=== PATIENT | male | born 1990 ===

== ENCOUNTER 2023-05-05 11:59 | Emergency (ER) | payer SELFPAY ==
[2023-05-05 12:33] VITALS: BP 183/107; PULSE 100; RESP 15; TEMP 37.3; O2SAT 99; BMI 29.8
--- NOTE | 2023-05-05 12:53 | DI.US.S_ITS ---
PROCEDURE: US PERIPH VENOUS LOW EXTREM LT INDICATIONS: SWELLING/PAIN X 2 WEEKS. H/O QUAD TEAR 11/2022. REHAB FINISHED 02/2023. HISTORY OF COMPARTMENT SYNDROME 2 TIMES PER PATIENT. TECHNIQUE: Real-time imaging, as well as color and pulse Doppler interrogation, were performed of the lower extremity deep veins from the inguinal ligament to the popliteal fossa, with documentation of the visualized calf veins. COMPARISON: None. FINDINGS: The common femoral, femoral, popliteal, and the visualized calf veins are normally compressible, and free of intraluminal thrombus. Color and pulse Doppler demonstrate normal phasic intraluminal flow. There is normal augmentation response to distal compression maneuver. Heterogeneous intramuscular fluid collection is seen at the lateral aspect of the thigh measuring 20.1 x 7.1 x 4.0 cm. This appears to be located in the region of the vastus lateralis muscle, although bony landmarks are not optimally visualized. Small amount of anechoic fluid adjacent to the in the may represent joint effusion. IMPRESSION: 1. No sonographic evidence of deep venous thrombosis in the left lower extremity. 2. Large heterogeneous intramuscular collection along the lateral aspect of the thigh is most likely an intramuscular hematoma. Noncontrast MRI of the femur/thigh could be performed for further characterization if clinically indicated. Approved by: Car Gamboa M.D. on 05/05/2023 at 13:59
[2023-05-05 13:21] LABS: Add Manual Diff / Slide Review NO; Basophils Absolute Auto 100 /uL (0-100); Basophils Percent Auto 0.8 % (0-2); Eosinophils Absolute Auto 100 /uL (0-450); Eosinophils Percent Auto 0.6 % (2-4); Hematocrit 33.6 % (41-53); Hemoglobin 11.6 g/dL (13.5-17.5); Lymphocytes Absolute Auto 2300 /uL (1100-4500); Lymphocytes Percent Auto 18.6 % (25-40); Mean Corpuscular HGB Conc 34.5 % (30-36); Mean Corpuscular Hemoglobin 27.7 PG (26-34); Mean Corpuscular Volume 80.3 fL (80-100); Monocytes Absolute Auto 1100 /uL (0-900); Monocytes Percent Auto 8.8 % (3-14); Neutrophils Absolute Auto 8800 /uL (1500-7000); Neutrophils Percent Auto 71.2 % (50-75); Platelet Count 502 X10^3/uL (150-400); Red Blood Cell Count 4.19 X10^6/uL (4.5-5.9); Red Cell Distribution Width 15.5 % (11.6-14.8); White Blood Cell Count 12.3 X10^3/uL (4.5-11.0)
[2023-05-05 13:30] LABS: Alanine Aminotransferase 56 IU/L (<50); Albumin 4.4 g/dL (3.5-5.0); Albumin Globulin Ratio 1.3 (1.0-2.8); Alkaline Phosphatase 36 U/L (38-126); Aspartate Aminotransferase 53 IU/L (17-59); BUN Creatinine Ratio 21.9 (6-22); Bilirubin Total 1.3 mg/dL (0.2-1.3); Blood Urea Nitrogen 35 mg/dL (9-20); Calcium 9.6 mg/dL (8.4-10.2); Carbon Dioxide 34 mmol/L (22-32); Chloride 90 mmol/L (98-107); Creatine Kinase 513 U/L (55-170); Estimated Glomerular Filt Rate 57 mL/min (>60); Globulin 3.4 g/dL (1.7-4.1); Glucose 109 mg/dL (70-100); HEMOLYSIS < 15 (0-50); Potassium 4.1 mmol/L (3.4-5.1); Sodium 134 mmol/L (137-145); Total Protein 7.8 g/dL (6.3-8.2)
--- NOTE | 2023-05-05 14:26 | DI.CT.S_ITS ---
PROCEDURE: CT LE LT W CON INDICATIONS: ?Hematoma TECHNIQUE: After the administration of intravenous contrast, 3 mm axial sections acquired of the left thigh, with coronal and sagittal reformats. COMPARISON: [facility], , PERIP VENOUS LOW EXTREM LT, 05/05/2023, 13:14. FINDINGS: Image quality: Excellent. Bones: No acute osseous fracture or dislocation. No significant degenerative changes in the left hip. No suspicious osseous lesion. Soft tissues: Ill-defined intramuscular fluid collection is seen within the anterior compartment of the thigh with areas of fluid attenuation and hyperattenuating areas. This lesion is better demonstrated on the ultrasound performed earlier the same day. Collection appears to measure at least 20.5 cm in length although the margins are poorly defined. The collection likely involves the vastus lateralis and/or vastus intermedius muscle. The rectus femoris and vastus medialis muscles do not appear to be involved. No active contrast extravasation is seen. Mild overlying subcutaneous edema is present. There is mild edema at the proximal lateral aspect of the thigh near the greater trochanter. Small right knee effusion is partially imaged. The common, superficial, and deep femoral arteries are patent. Pelvic soft tissues demonstrate no acute abnormality. The medial and posterior thigh musculature is normal in bulk. IMPRESSION: Ill-defined heterogeneous fluid collection within the anterior compartment musculature is most likely an intramuscular hematoma, as seen on ultrasound from earlier the same day. No active contrast extravasation is seen. Approved by: Car Gamboa M.D. on 05/05/2023 at 16:16
[2023-05-05 14:40] LABS: Magnesium 2.3 mg/dL (1.6-2.3); Phosphorous 4.9 mg/dL (2.5-4.5)
[2023-05-05] MEDS: SODIUM CHLORIDE 0.9% 1,000 ML 1000 ML IV ×2 (14:59→15:36)
[2023-05-05 16:26] VITALS: BP 224/112; PULSE 102; RESP 16; O2SAT 100
--- NOTE | 2023-05-05 16:44 | PC.NURSE ---
discussed at length with patient regarding his kidney function and the need for him to establish care with a PCP once returning to [place]. Pt agreeable. Shahbaz Wilson PAC made aware of BP elevation. Pt states he has white coat syndrome and takes his BP at home which is always within normal limits. No new orders. Pt discharged to home and ambulated out of department with steady gait.
--- NOTE | 2023-05-05 18:49 | ED.EXTPRO ---
HPI - Extremity Problem <Shahbaz Wilson PA-C - Last Filed: 05/05/23 19:03> General Chief complaint: Extremity Problem,Nontraumatic Stated complaint: lt leg pain Time Seen by Provider: 05/05/23 14:26 Source: patient Mode of arrival: Family Vehicle History of Present Illness HPI Narrative: 33-year-old male with no reported past medical history presents to the ED with left quad accepts swelling and pain for 2 weeks. Patient states that he is from [place], tore his left quadriceps in November 2022 as a result of a leg press machine coming down on him. Patient exercises regularly. Patient states that he was fell from the quadrants tear, noted swelling and pain after a bout of wrestling 2 weeks ago. Since then, patient has had intermittent swelling pain and discomfort when walking. Patient is able to bend his knees and there is full range of motion. Patient denies numbness, tingling, weakness. Denies drug use. Related Data Allergies Allergy/AdvReac Type Severity Reaction Status Date / Time No Known Drug Allergies Allergy Verified 05/05/23 12:43 Review of Systems <Shahbaz Wilson PA-C - Last Filed: 05/05/23 19:03> Review of Systems ROS Unobtainable: All systems reviewed & are unremarkable except as noted in HPI and below Constitutional Constitutional: Denies chills, Denies fatigue, Denies fever(s), Denies frequent falls, Denies lethargy and Denies weakness Eyes Eyes: Denies change in vision, Denies eye discharge, Denies irritation and Denies loss of vision ENT Ears, Nose, Mouth, and Throat: Denies change in voice, Denies dizziness, Denies neck pain, Denies sore throat and Denies throat swelling Cardiovascular Cardiovascular: Denies chest pain, Denies irregular heart rhythm, Denies lightheadedness, Denies palpitations, Denies dyspnea, Denies dyspnea on exertion and Denies orthopnea Respiratory Respiratory: Denies cough, Denies dyspnea, Denies dyspnea on exertion and Denies wheezing Gastrointestinal Gastrointestinal: Denies abdominal pain, Denies change in bowel habits, Denies diarrhea, Denies nausea and Denies vomiting Genitourinary Genitourinary: Denies hematuria, Denies flank pain, Denies urinary incontinence and Denies urinary urgency Musculoskeletal Musculoskeletal: Denies back pain, Denies muscle weakness, Denies neck pain, Denies numbness and Denies tingling Comments: Left quadriceps pain Integumentary/Breasts Skin/Breast: Denies pruritus, Denies erythema, Denies rash and Denies wounds Neurologic Neurologic: Denies behavioral changes, Denies confusion, Denies dizziness, Denies frequent falls, Denies loss of vision, Denies numbness, Denies tingling and Denies weakness Psychiatric Psychiatric: Denies anxiety, Denies behavioral changes, Denies confusion, Denies depression, Denies homicidal ideation and Denies suicidal ideation Endocrine Endocrine: Denies fatigue, Denies flushing and Denies palpitations Hematologic/Lymphatic Hematologic/Lymphatic: Denies easy bruising Allergic/Immunologic Allergic/Immunologic: Denies urticaria, Denies throat swelling and Denies wheezing Patient History <Shahbaz Wilson PA-C - Last Filed: 05/05/23 19:03> Social History Smoking Status: Never smoker Smoking Status: Never smoker alcohol intake frequency: 0-2 drinks per day Substance Use Type: marijuana Exam <Shahbaz Wilson PA-C - Last Filed: 05/05/23 19:03> Narrative Exam Narrative: Const General:?cooperative, healthy appearing and comfortable [facility] Head:?normal to inspection Ears:?hearing grossly normal bilaterally Nose:?external nose normal Face and sinus:?normal facial exam and sinuses nontender Mouth:?oral mucosae normal Throat:?posterior oropharynx normal Eyes General:?appearance normal, both eyes and all related structures Neck Neck:?normal visual inspection and no lymphadenopathy noted Resp Effort & Inspection:?normal respiratory effort Auscultation:?clear to auscultation bilaterally Cardio Rate:?regular rate Rhythm:?regular rhythm Musculoskeletal Left quadriceps appears swollen, tender to palpation. Compartments are soft. No bruising visualized on exam. There is full range of motion. Strength and sensation is intact. Patient is neurovascularly intact. Patient is able to bear weight and walk. Neuro General:?patient alert, patient awake and patient oriented x3 Initial Vital Signs Initial Vital Signs: Vital Signs Temperature 99.1 F 05/05/23 12:33 Pulse Rate 100 H 05/05/23 12:33 Respiratory Rate 15 05/05/23 12:33 Blood Pressure 183/107 H 05/05/23 12:33 Pulse Oximetry 99 05/05/23 12:33 Oxygen Delivery Method Room Air 05/05/23 12:33 <Aurelia Begum DO - Last Filed: 05/07/23 07:42> Initial Vital Signs Initial Vital Signs: Vital Signs Temperature 99.1 F 05/05/23 12:33 Pulse Rate 100 H 05/05/23 12:33 Respiratory Rate 15 05/05/23 12:33 Blood Pressure 183/107 H 05/05/23 12:33 Pulse Oximetry 99 05/05/23 12:33 Oxygen Delivery Method Room Air 05/05/23 12:33 Course <Shahbaz Wilson PA-C - Last Filed: 05/05/23 19:03> Orders Ordered: Discontinued Medications Sodium Chloride (Normal Saline 0.9%) 1,000 mls @ 1,000 mls/hr IV BOLUS ONE Stop: 05/05/23 15:28 Last Infusion: 05/05/23 15:36 Dose: 0 mls/hr Documented By: Admin: 05/05/23 14:59 Dose: 1,000 mls/hr Documented By: CTS Sodium Chloride (Normal Saline 0.9%) 1,000 mls @ 1,000 mls/hr IV BOLUS ONE Stop: 05/05/23 16:23 Last Infusion: 05/05/23 16:06 Dose: 0 mls/hr Documented By: Admin: 05/05/23 15:36 Dose: 1,000 mls/hr Documented By: CTS Vital Signs Vital signs: Vital Signs - 8 hr 05/05/23 12:33 05/05/23 16:26 Temperature 99.1 F Pulse Rate 100 H 102 H Respiratory Rate 15 16 Blood Pressure 183/107 H 224/112 H Pulse Oximetry 99 100 Oxygen Delivery Method Room Air Room Air <Aurelia Begum DO - Last Filed: 05/07/23 07:42> Orders Ordered: Discontinued Medications Sodium Chloride (Normal Saline 0.9%) 1,000 mls @ 1,000 mls/hr IV BOLUS ONE Stop: 05/05/23 15:28 Last Infusion: 05/05/23 15:36 Dose: 0 mls/hr Documented By: Admin: 05/05/23 14:59 Dose: 1,000 mls/hr Documented By: CTS Sodium Chloride (Normal Saline 0.9%) 1,000 mls @ 1,000 mls/hr IV BOLUS ONE Stop: 05/05/23 16:23 Last Infusion: 05/05/23 16:06 Dose: 0 mls/hr Documented By: Admin: 05/05/23 15:36 Dose: 1,000 mls/hr Documented By: ALEJANDRO Vital Signs Vital signs: Vital Signs - 8 hr 05/05/23 12:33 05/05/23 16:26 Temperature 99.1 F Pulse Rate 100 H 102 H Respiratory Rate 15 16 Blood Pressure 183/107 H 224/112 H Pulse Oximetry 99 100 Oxygen Delivery Method Room Air Room Air MDM - Extremity (Nontraumatic) <Shahbaz Wilson PA-C - Last Filed: 05/05/23 19:03> Lab Data 05/05/23 13:07 05/05/23 13:07 Labs: Lab Results 05/05/23 05/05/23 05/05/23 Range/Units 13:07 13:07 13:07 WBC 12.3 H (4.5-11.0) X10^3/uL RBC 4.19 L (4.5-5.9) X10^6/uL Hgb 11.6 L (13.5-17.5) g/dL Hct 33.6 L (41-53) % MCV 80.3 (80-100) fL MCH 27.7 (26-34) PG MCHC 34.5 (30-36) % RDW 15.5 H (11.6-14.8) % Plt Count 502 H (150-400) X10^3/uL Neut % (Auto) 71.2 (50-75) % Lymph % (Auto) 18.6 L (25-40) % Craven % (Auto) 8.8 (3-14) % Eos % (Auto) 0.6 L (2-4) % Baso % (Auto) 0.8 (0-2) % Neut # (Auto) 8800 H (2307-5399) /uL Lymph # (Auto) 2300 (4783-9358) /uL Craven # (Auto) 1100 H (0-900) /uL Eos # (Auto) 100 (0-450) /uL Baso # (Auto) 100 (0-100) /uL Sodium 134 L (137-145) mmol/L Potassium 4.1 (3.4-5.1) mmol/L Chloride 90 L (98-107) mmol/L Carbon Dioxide 34 H (22-32) mmol/L BUN 35 H (9-20) mg/dL Creatinine 1.60 H (0.66-1.25) mg/dL Estimated GFR 57 L (>60) mL/min BUN/Creatinine Ratio 21.9 (6-22) Glucose 109 H (70-100) mg/dL Calcium 9.6 (8.4-10.2) mg/dL Phosphorus (2.5-4.5) mg/dL Magnesium (1.6-2.3) mg/dL Total Bilirubin 1.3 (0.2-1.3) mg/dL AST 53 (17-59) IU/L ALT 56 H (<50) IU/L Alkaline Phosphatase 36 L (38-126) U/L Total Creatine Kinase 513 H (55-170) U/L Total Protein 7.8 (6.3-8.2) g/dL Albumin 4.4 (3.5-5.0) g/dL Globulin 3.4 (1.7-4.1) g/dL Albumin/Globulin Ratio 1.3 (1.0-2.8) // Range/Units 13:07 WBC (4.5-11.0) X10^3/uL RBC (4.5-5.9) X10^6/uL Hgb (13.5-17.5) g/dL Hct (41-53) % MCV (80-100) fL MCH (26-34) PG MCHC (30-36) % RDW (11.6-14.8) % Plt Count (150-400) X10^3/uL Neut % (Auto) (50-75) % Lymph % (Auto) (25-40) % Craven % (Auto) (3-14) % Eos % (Auto) (2-4) % Baso % (Auto) (0-2) % Neut # (Auto) (9195-3161) /uL Lymph # (Auto) (0066-8744) /uL Craven # (Auto) (0-900) /uL Eos # (Auto) (0-450) /uL Baso # (Auto) (0-100) /uL Sodium (137-145) mmol/L Potassium (3.4-5.1) mmol/L Chloride (98-107) mmol/L Carbon Dioxide (22-32) mmol/L BUN (9-20) mg/dL Creatinine (0.66-1.25) mg/dL Estimated GFR (>60) mL/min BUN/Creatinine Ratio (6-22) Glucose (70-100) mg/dL Calcium (8.4-10.2) mg/dL Phosphorus 4.9 H (2.5-4.5) mg/dL Magnesium 2.3 (1.6-2.3) mg/dL Total Bilirubin (0.2-1.3) mg/dL AST (17-59) IU/L ALT (<50) IU/L Alkaline Phosphatase (38-126) U/L Total Creatine Kinase (55-170) U/L Total Protein (6.3-8.2) g/dL Albumin (3.5-5.0) g/dL Globulin (1.7-4.1) g/dL Albumin/Globulin Ratio (1.0-2.8) MDM Narrative Medical decision making narrative: 33-year-old male with no reported past medical history presents to the ED with left quad accepts swelling and pain for 2 weeks. Concern for DVT versus hematoma versus musculoskeletal sprain/strain versus other. Obtained ultrasound, CK, labs. Ultrasound shows no evidence of DVT. There is a large heterogenous intramuscular collection along the lateral aspect of the thigh which is most likely an intramuscular hematoma. CK is elevated to 513, mild elevation of liver enzymes. There is an FAISAL with creatinine 1.6, GFR 57. Phosphorus mildly elevated to 4.9. Patient's lab abnormalities most consistent with muscle injury, rhabdomyolysis. Patient is also tachycardic, which he attributes to white coat syndrome and being in the ED. a CT was performed which shows a ill-defined heterogenous fluid collection within the anterior compartment musculature which is most likely an intramuscular hematoma, consistent with the ultrasound findings. Patient given 2 L of IV fluids. Discussed findings with patient. Counseled importance of resting muscles to promote healing. Recommend follow-up with PCP and physical therapy to safely rehabilitate the injured muscle. Discussed lab abnormalities, rhabdomyolysis, recommend reducing the intensity of exercises. Patient agrees to follow-up with his PCP. ED return precautions were discussed with patient. Patient verbalized understanding. Medical records reviewed: Yes <Aurelia Kel DO - Last Filed: 05/07/23 07:42> Lab Data Labs: Lab Results 05/05/23 05/05/23 05/05/23 Range/Units 13:07 13:07 13:07 WBC 12.3 H (4.5-11.0) X10^3/uL RBC 4.19 L (4.5-5.9) X10^6/uL Hgb 11.6 L (13.5-17.5) g/dL Hct 33.6 L (41-53) % MCV 80.3 (80-100) fL MCH 27.7 (26-34) PG MCHC 34.5 (30-36) % RDW 15.5 H (11.6-14.8) % Plt Count 502 H (150-400) X10^3/uL Neut % (Auto) 71.2 (50-75) % Lymph % (Auto) 18.6 L (25-40) % Craven % (Auto) 8.8 (3-14) % Eos % (Auto) 0.6 L (2-4) % Baso % (Auto) 0.8 (0-2) % Neut # (Auto) 8800 H (3247-2423) /uL Lymph # (Auto) 2300 (1027-3418) /uL Craven # (Auto) 1100 H (0-900) /uL Eos # (Auto) 100 (0-450) /uL Baso # (Auto) 100 (0-100) /uL Sodium 134 L (137-145) mmol/L Potassium 4.1 (3.4-5.1) mmol/L Chloride 90 L (98-107) mmol/L Carbon Dioxide 34 H (22-32) mmol/L BUN 35 H (9-20) mg/dL Creatinine 1.60 H (0.66-1.25) mg/dL Estimated GFR 57 L (>60) mL/min BUN/Creatinine Ratio 21.9 (6-22) Glucose 109 H (70-100) mg/dL Calcium 9.6 (8.4-10.2) mg/dL Phosphorus (2.5-4.5) mg/dL Magnesium (1.6-2.3) mg/dL Total Bilirubin 1.3 (0.2-1.3) mg/dL AST 53 (17-59) IU/L ALT 56 H (<50) IU/L Alkaline Phosphatase 36 L (38-126) U/L Total Creatine Kinase 513 H (55-170) U/L Total Protein 7.8 (6.3-8.2) g/dL Albumin 4.4 (3.5-5.0) g/dL Globulin 3.4 (1.7-4.1) g/dL Albumin/Globulin Ratio 1.3 (1.0-2.8) 05/05/23 Range/Units 13:07 WBC (4.5-11.0) X10^3/uL RBC (4.5-5.9) X10^6/uL Hgb (13.5-17.5) g/dL Hct (41-53) % MCV (80-100) fL MCH (26-34) PG MCHC (30-36) % RDW (11.6-14.8) % Plt Count (150-400) X10^3/uL Neut % (Auto) (50-75) % Lymph % (Auto) (25-40) % Craven % (Auto) (3-14) % Eos % (Auto) (2-4) % Baso % (Auto) (0-2) % Neut # (Auto) (2096-6595) /uL Lymph # (Auto) (7212-4489) /uL Craven # (Auto) (0-900) /uL Eos # (Auto) (0-450) /uL Baso # (Auto) (0-100) /uL Sodium (137-145) mmol/L Potassium (3.4-5.1) mmol/L Chloride (98-107) mmol/L Carbon Dioxide (22-32) mmol/L BUN (9-20) mg/dL Creatinine (0.66-1.25) mg/dL Estimated GFR (>60) mL/min BUN/Creatinine Ratio (6-22) Glucose (70-100) mg/dL Calcium (8.4-10.2) mg/dL Phosphorus 4.9 H (2.5-4.5) mg/dL Magnesium 2.3 (1.6-2.3) mg/dL Total Bilirubin (0.2-1.3) mg/dL AST (17-59) IU/L ALT (<50) IU/L Alkaline Phosphatase (38-126) U/L Total Creatine Kinase (55-170) U/L Total Protein (6.3-8.2) g/dL Albumin (3.5-5.0) g/dL Globulin (1.7-4.1) g/dL Albumin/Globulin Ratio (1.0-2.8) Discharge Plan Departure Patient Disposition: Home Clinical Impression: Hematoma of muscle Instructions: DI for Hematoma (Bruise) Activity Restrictions/Additional Instructions: You were evaluated in the ED today for left upper leg pain. Your CT scan and ultrasound show a intramuscular hematoma of the quadriceps muscle. The hematoma is likely due to a trauma to the muscle from the wrestling, will get reabsorbed over the next several days or weeks. In the meantime, it is important that you rest the muscle to aid healing. You also had some abnormalities in your lab results including a elevated creatinine kinase which is usually due to muscular breakdown due to strenuous exercise. It is a condition also refer to as rhabdomyolysis, which can also cause other abnormalities such as worsened kidney function. Your kidney function today did appear lower than normal for your age, likely due to the rhabdomyolysis. Please continue to stay well hydrated, and adjust your activity level to be less strenuous. Please follow-up with your primary care provider soon as possible to monitor your labs and injury. Return to the ED if you have worsening symptoms, numbness, tingling, weakness. Stand Alone Forms: Patient Portal/API <Aurelia Begum DO - Last Filed: 05/07/23 07:42> [facility] Yanni Attestation: I was immediately available in the department for consultation. Documentation has been reviewed.
== END 2023-05-05 16:46 | disposition home or self-care (01) ==
PROVIDERS: Emergency Medicine; Emergency Provider Student in an Organized Health Care Education/Training Program
DX: S80.12XA Contusion of left lower leg, initial encounter (principal); R79.89 Other specified abnormal findings of blood chemistry; R00.0 Tachycardia, unspecified; X58.XXXA Exposure to other specified factors, initial encounter
CPT/HCPCS: 36415; 73701; 80053; 82550; 83735; 84100; 85025; 93971; 99284; Q9967